=== PATIENT | male | born 1960 | race Caucasian/White ===

== ENCOUNTER 2019-03-21 15:47 | Observation (INO) ==
[2019-03-21] MEDS ORDERED: ACETAMINOPHEN 325 MG TABLET PO PRN (15:53)
[2019-03-21] MEDS ORDERED: ONDANSETRON 4 MG/2 ML VIAL IV PRN (15:53)
[2019-03-21] MEDS ORDERED: DEXTROSE 10% 250 ML BAG IV PRN (15:53)
[2019-03-21] MEDS ORDERED: GLUCAGON 1 MG VIAL IM PRN (15:53)
[2019-03-21] MEDS ORDERED: DOCUSATE SODIUM 100 MG CAPSULE PO PRN (15:53)
[2019-03-21] MEDS ORDERED: DEXTROMETHORPHAN ER 6 MG/ML 90 ML/BOTTLE PO PRN (16:06)
[2019-03-21] MEDS ORDERED: BENZONATATE 100 MG CAPSULE PO PRN (16:07)
[2019-03-21] MEDS: INSULIN LISPRO 100 UNIT/ML SUBCUT SCH ×2 (18:29→20:35)
[2019-03-21] MEDS: methylPREDNISolone SOD SUC 40 MG/1 ML VIAL IV SCH (18:30)
[2019-03-21] MEDS: MEROPENEM 500 MG in SODIUM CHLORIDE 0.9% 100 ML IV SCH (18:32)
[2019-03-21 18:46] LABS: Basophils # 0.1 10*3/uL (0.0-0.2); Basophils % 0.6 % (0.0-0.8); Eosinophils # 0.3 10*3/uL (0.0-0.87); Eosinophils % 3.3 % (0.00-10.9); Hemoglobin 10.6 GM/DL (14.0-18.0); Immature Granulocytes % 2.8 %; Immature Granulocytes Absolute 0.27 #; Lymphocytes # 2.2 10*3/uL (1.4-4.0); Lymphocytes % 22.3 % (21.2-54.2); Mean Corpuscular HGB Conc 32.1 GM/DL (32-36); Mean Corpuscular Volume 100.3 FL (87-102); Mean Platelet Volume 8.6 FL (9.6-12.0); Monocytes % 14.2 % (1.7-12.7); Neutrophils % 56.8 % (38.7-73.9); Platelet Count 280 T/CUMM (130-400); Red Blood Count 3.29 MC/CUMM (3.8-5.5); Red Cell Distribution Width 16.3 % (9.3-17.3); White Blood Count 9.8 T/CUMM (4-12)
[2019-03-21] MEDS: ALBUTEROL/IPRATROPIUM 3 ML NEB RESP TX SCH ×2 (19:00→23:10)
[2019-03-21 19:06] LABS: Albumin 3.2 G/DL (3.4-5.0); Bilirubin,Total 0.6 MG/DL (0.2-1.0); Calcium 8.5 MG/DL (8.5-10.1); Total Protein 7.7 G/DL (6.4-8.3)
[2019-03-21] MEDS: ENOXAPARIN 30 MG/0.3 ML SYRINGE SUBCUT SCH (20:34)
[2019-03-22] MEDS: MEROPENEM 500 MG in SODIUM CHLORIDE 0.9% 100 ML IV SCH ×2 (00:04→05:52)
[2019-03-22] MEDS: ALBUTEROL/IPRATROPIUM 3 ML NEB RESP TX SCH ×6 (03:30→23:10)
[2019-03-22] MEDS: methylPREDNISolone SOD SUC 40 MG/1 ML VIAL IV SCH ×2 (05:52→20:59)
[2019-03-22] MEDS ORDERED: DARBEPOETIN ALFA 100 MCG/ML VIAL SUBCUT SCH (08:00)
[2019-03-22] MEDS ORDERED: GABAPENTIN 100 MG CAPSULE PO SCH (09:00)
[2019-03-22] MEDS: PANTOPRAZOLE 40 MG TABLET PO SCH (09:37)
[2019-03-22] MEDS: INSULIN LISPRO 100 UNIT/ML SUBCUT SCH ×4 (09:37→20:54)
[2019-03-22] MEDS ORDERED: INSULIN GLARGINE 100 UNIT/ML SUBCUT SCH (12:00)
[2019-03-22] MEDS: ASPIRIN EC 81 MG TABLET PO SCH (13:05)
[2019-03-22] MEDS: amLODIPine 10 MG TABLET PO SCH (13:06)
[2019-03-22] MEDS: carvediloL 25 MG TABLET PO SCH ×2 (13:06→18:51)
[2019-03-22] MEDS ORDERED: MEROPENEM 500 MG in SODIUM CHLORIDE 0.9% 100 ML IV SCH (17:00)
[2019-03-22] MEDS: INSULIN GLARGINE 100 UNIT/ML SUBCUT SCH (18:51)
[2019-03-22] MEDS: ENOXAPARIN 30 MG/0.3 ML SYRINGE SUBCUT SCH (20:54)
[2019-03-22] MEDS: GABAPENTIN 100 MG CAPSULE PO SCH (20:54)
[2019-03-23] MEDS: ALBUTEROL/IPRATROPIUM 3 ML NEB RESP TX SCH ×4 (03:10→14:44)
[2019-03-23] MEDS: INSULIN LISPRO 100 UNIT/ML SUBCUT SCH ×4 (08:41→17:40)
[2019-03-23] MEDS: INSULIN GLARGINE 100 UNIT/ML SUBCUT SCH (09:03)
[2019-03-23] MEDS: methylPREDNISolone SOD SUC 40 MG/1 ML VIAL IV SCH ×2 (09:04→12:01)
[2019-03-23] MEDS: ASPIRIN EC 81 MG TABLET PO SCH (09:05)
[2019-03-23] MEDS: GABAPENTIN 100 MG CAPSULE PO SCH (09:05)
[2019-03-23] MEDS: PANTOPRAZOLE 40 MG TABLET PO SCH (09:05)
[2019-03-23] MEDS: amLODIPine 10 MG TABLET PO SCH (09:05)
[2019-03-23] MEDS: carvediloL 25 MG TABLET PO SCH ×2 (09:05→17:41)
[2019-03-23 16:32] VITALS: BP 163/69
[2019-03-23] MEDS ORDERED: predniSONE 10 MG TABLET PO SCH (21:00)
[2019-03-23] MEDS ORDERED: BUDESONIDE/FORMOTEROL 160-4.5 INHALER 6 GM INH SCH (21:00)
== END 2019-03-23 17:45 | disposition home or self-care (01) ==
LOC: N.2E
PROVIDERS: ADMIT Family Medicine; ATTEND Family Medicine

== ENCOUNTER 2020-07-08 23:15 | Inpatient (IN) ==
[2020-07-08] MEDS ORDERED: VANCOMYCIN INJ 1,000 MG in SODIUM CHLORIDE 0.9% 250 ML IV STA (23:25)
[2020-07-09] MEDS ORDERED: MORPHINE 4 MG/1 ML VIAL IV PRN (00:24)
[2020-07-09] MEDS ORDERED: ONDANSETRON 4 MG/2 ML VIAL IV PRN (00:24)
[2020-07-09] MEDS ORDERED: NALOXONE 0.4 MG/ML VIAL IV PRN (00:24)
[2020-07-09] MEDS: ACETAMINOPHEN 325 MG TABLET PO PRN ×3 (01:43→15:59)
[2020-07-09] MEDS ORDERED: cloNIDine 0.1 MG TABLET PO PRN (04:14)
[2020-07-09 06:44] LABS: Basophils # 0.1 10*3/uL (0.0-0.2); Basophils % 0.6 % (0.0-0.8); Eosinophils # 0.1 10*3/uL (0.0-0.87); Eosinophils % 0.7 % (0.00-10.9); Hematocrit 31.5 VOL% (42.0-52.0); Hemoglobin 10.5 GM/DL (14.0-18.0); Immature Granulocytes % 0.9 %; Immature Granulocytes Absolute 0.17 #; Lymphocytes # 1.4 10*3/uL (1.4-4.0); Lymphocytes % 7.2 % (21.2-54.2); Mean Corpuscular HGB Conc 33.3 GM/DL (32-36); Mean Corpuscular Volume 98.1 FL (87-102); Mean Platelet Volume 9.4 FL (9.6-12.0); Monocytes % 13.3 % (1.7-12.7); Neutrophils % 77.3 % (38.7-73.9); Platelet Count 202 T/CUMM (130-400); Red Blood Count 3.21 MC/CUMM (3.8-5.5); Red Cell Distribution Width 15.3 % (9.3-17.3); White Blood Count 19.8 T/CUMM (4-12)
[2020-07-09 07:09] LABS: Albumin 3.1 G/DL (3.4-5.0); Bilirubin,Total 0.6 MG/DL (0.2-1.0); Calcium 8.3 MG/DL (8.5-10.1); Osmolality,Calculated 281.8 MOS/KG (273-304); Potassium 4.4 MMOL/L (3.5-5.1); Total Protein 7.3 G/DL (6.4-8.2)
[2020-07-09] MEDS ORDERED: DEXTROSE 50% 25 GM/50 ML VIAL IV PRN ×2 (08:04→09:45)
[2020-07-09] MEDS ORDERED: GLUCAGON 1 MG VIAL IM PRN (08:04)
[2020-07-09] MEDS ORDERED: VANCOMYCIN INJ 1,250 MG in SODIUM CHLORIDE 0.9% 250 ML IV PRN (08:17)
[2020-07-09] MEDS ORDERED: VANCOMYCIN IV SCH (08:30)
[2020-07-09] MEDS ORDERED: SODIUM CHLORIDE 0.9% IV SCH (08:30)
[2020-07-09] MEDS ORDERED: LEVOFLOXACIN INJ 750 MG/150 ML PREMIX IV ONE (09:00)
[2020-07-09] MEDS: ASCORBIC ACID 500 MG TABLET PO SCH (10:13)
[2020-07-09] MEDS: PANTOPRAZOLE 40 MG TABLET PO SCH (10:13)
[2020-07-09] MEDS: ASPIRIN EC 81 MG TABLET PO SCH (10:13)
[2020-07-09] MEDS: DOCUSATE SODIUM 100 MG CAPSULE PO SCH ×2 (10:13→21:05)
[2020-07-09] MEDS: FENOFIBRATE 160 MG TABLET PO SCH (10:13)
[2020-07-09] MEDS: carvediloL 25 MG TABLET PO SCH ×2 (10:13→17:06)
[2020-07-09] MEDS ORDERED: VANCOMYCIN INJ 2,000 MG in SODIUM CHLORIDE 0.9% 500 ML IV ONE (11:00)
[2020-07-09] MEDS: INSULIN REGULAR ** CONC 500 UNIT/ML ** 20 ML VIAL SUBCUT SCH ×2 (11:59→21:06)
[2020-07-09] MEDS: INSULIN LISPRO 100 UNIT/ML SUBCUT SCH ×3 (12:41→21:06)
[2020-07-09] MEDS: SEVELAMER CARBONATE 800 MG TABLET PO SCH ×2 (12:42→17:06)
[2020-07-09] MEDS: GABAPENTIN 300 MG CAPSULE PO SCH (21:05)
[2020-07-10] MEDS: INSULIN LISPRO 100 UNIT/ML SUBCUT SCH ×4 (10:37→20:59)
[2020-07-10] MEDS: DOCUSATE SODIUM 100 MG CAPSULE PO SCH ×2 (15:04→20:59)
[2020-07-10] MEDS: ASPIRIN EC 81 MG TABLET PO SCH (15:04)
[2020-07-10] MEDS: FENOFIBRATE 160 MG TABLET PO SCH (15:04)
[2020-07-10] MEDS: carvediloL 25 MG TABLET PO SCH ×2 (15:05→17:36)
[2020-07-10] MEDS: SEVELAMER CARBONATE 800 MG TABLET PO SCH ×3 (15:05→17:36)
[2020-07-10] MEDS: PANTOPRAZOLE 40 MG TABLET PO SCH (15:05)
[2020-07-10] MEDS: INSULIN REGULAR ** CONC 500 UNIT/ML ** 20 ML VIAL SUBCUT SCH ×2 (15:05→20:59)
[2020-07-10] MEDS: ENOXAPARIN 30 MG/0.3 ML SYRINGE SUBCUT SCH (15:06)
[2020-07-10] MEDS: ACETAMINOPHEN 325 MG TABLET PO PRN (17:40)
[2020-07-10] MEDS: GABAPENTIN 300 MG CAPSULE PO SCH (20:59)
[2020-07-11 07:28] VITALS: BP 133/59
[2020-07-11] MEDS ORDERED: BUTALBITAL/ACETAMIN/CAFFEINE 50-325-40 MG TABLET PO ONE (07:51)
[2020-07-11] MEDS ORDERED: LEVOFLOXACIN 500 MG TABLET PO ONE (08:50)
[2020-07-11] MEDS ORDERED: LEVOFLOXACIN INJ 500 MG/100 ML PREMIX IV SCH (09:00)
[2020-07-11] MEDS: carvediloL 25 MG TABLET PO SCH (09:11)
[2020-07-11] MEDS: PANTOPRAZOLE 40 MG TABLET PO SCH (09:11)
[2020-07-11] MEDS: DOCUSATE SODIUM 100 MG CAPSULE PO SCH (09:12)
[2020-07-11] MEDS: FENOFIBRATE 160 MG TABLET PO SCH (09:12)
[2020-07-11] MEDS: ASPIRIN EC 81 MG TABLET PO SCH (09:12)
[2020-07-11] MEDS: SEVELAMER CARBONATE 800 MG TABLET PO SCH (09:12)
[2020-07-11] MEDS: ASCORBIC ACID 500 MG TABLET PO SCH (09:12)
[2020-07-11] MEDS: ENOXAPARIN 30 MG/0.3 ML SYRINGE SUBCUT SCH (09:14)
[2020-07-11] MEDS: INSULIN LISPRO 100 UNIT/ML SUBCUT SCH (09:17)
[2020-07-11] MEDS: INSULIN REGULAR ** CONC 500 UNIT/ML ** 20 ML VIAL SUBCUT SCH (09:18)
[2020-07-13] MEDS ORDERED: OZEMPIC SUBCUT SCH (09:00)
== END 2020-07-11 11:46 | disposition home or self-care (01) | DRG 152 ==
LOC: EDUNIT# → EDBD → N.ED 23:15 → N.TELES 07-09 00:24
PROVIDERS: ADMIT Family Medicine; ATTEND Family Medicine

== ENCOUNTER 2020-09-06 10:57 | Inpatient (IN) ==
[2020-09-06] MEDS ORDERED: ONDANSETRON 4 MG/2 ML VIAL IV PRN (11:04)
[2020-09-06] MEDS ORDERED: ACETAMINOPHEN 325 MG TABLET PO PRN (11:04)
[2020-09-06] MEDS ORDERED: DOCUSATE SODIUM 100 MG CAPSULE PO PRN (11:10)
[2020-09-06 13:00] LABS: Basophils # 0.1 10*3/uL (0.0-0.2); Basophils % 0.4 % (0.0-0.8); Eosinophils # 0.4 10*3/uL (0.0-0.87); Eosinophils % 2.4 % (0.00-10.9); Hemoglobin 11.1 GM/DL (14.0-18.0); Immature Granulocytes % 1.2 %; Immature Granulocytes Absolute 0.19 #; Lymphocytes # 1.1 10*3/uL (1.4-4.0); Lymphocytes % 7.1 % (21.2-54.2); Mean Corpuscular HGB Conc 31.7 GM/DL (32-36); Mean Corpuscular Volume 98.6 FL (87-102); Monocytes % 15.7 % (1.7-12.7); Neutrophils % 73.2 % (38.7-73.9); Platelet Count 334 T/CUMM (130-400); Red Blood Count 3.55 MC/CUMM (3.8-5.5); Red Cell Distribution Width 15.3 % (9.3-17.3); White Blood Count 15.7 T/CUMM (4-12)
[2020-09-06 13:19] LABS: Band Neutrophils 46 % (0-10); Eosinophils 1 % (0-10); Lymphocytes 10 % (20-55); Metamyelocytes 1 %; Platelet Estimate Normal; Segmented Neutrophils 23 % (50-85); Total Cells Counted 100
[2020-09-06 13:20] LABS: Anisocytosis 1+; Macrocytosis Slight
[2020-09-06 13:24] LABS: Albumin 3.5 G/DL (3.4-5.0); Bilirubin,Total 0.4 MG/DL (0.20-1.00); Calcium 8.1 MG/DL (8.5-10.1); Osmolality,Calculated 301.8 MOS/KG (273-304); Total Protein 7.9 G/DL (6.4-8.2)
[2020-09-06] MEDS ORDERED: DEXTROSE 50% 25 GM/50 ML VIAL IV ONE (15:40)
[2020-09-06] MEDS ORDERED: DEXTROSE 50% 25 GM/50 ML VIAL IV PRN (16:01)
[2020-09-06] MEDS ORDERED: GLUCAGON 1 MG VIAL IM PRN (16:01)
[2020-09-06] MEDS: INSULIN LISPRO 100 UNIT/ML SUBCUT SCH ×2 (20:59→22:28)
[2020-09-06] MEDS: ENOXAPARIN 30 MG/0.3 ML SYRINGE SUBCUT SCH (21:39)
[2020-09-06] MEDS: SODIUM CHLORIDE 0.9% 1,000 ML IV SCH (22:00)
[2020-09-07] MEDS: VANCOMYCIN 50 MG/ML 60 ML/BOTTLE PO SCH ×4 (00:46→17:05)
[2020-09-07 05:47] LABS: Basophils # 0.1 10*3/uL (0.0-0.2); Basophils % 0.7 % (0.0-0.8); Eosinophils # 0.4 10*3/uL (0.0-0.87); Eosinophils % 2.4 % (0.00-10.9); Hematocrit 34.8 VOL% (42.0-52.0); Hemoglobin 11.5 GM/DL (14.0-18.0); Immature Granulocytes % 2.2 %; Immature Granulocytes Absolute 0.35 #; Lymphocytes # 1.8 10*3/uL (1.4-4.0); Lymphocytes % 11.1 % (21.2-54.2); Mean Corpuscular Volume 96.4 FL (87-102); Mean Platelet Volume 9.6 FL (9.6-12.0); Monocytes % 20.2 % (1.7-12.7); Neutrophils % 63.4 % (38.7-73.9); Platelet Count 352 T/CUMM (130-400); Red Blood Count 3.61 MC/CUMM (3.8-5.5); Red Cell Distribution Width 15.2 % (9.3-17.3); White Blood Count 16.2 T/CUMM (4-12)
[2020-09-07 06:17] LABS: Calcium 8.2 MG/DL (8.5-10.1); Osmolality,Calculated 304.5 MOS/KG (273-304); Potassium 3.8 MMOL/L (3.5-5.1)
[2020-09-07 06:48] LABS: Band Neutrophils 15 % (0-10); Eosinophils 2 % (0-10); Lymphocytes 11 % (20-55); Macrocytosis Slight; Platelet Estimate Normal; Segmented Neutrophils 52 % (50-85); Total Cells Counted 100
[2020-09-07] MEDS: PANTOPRAZOLE 40 MG TABLET PO SCH (06:49)
[2020-09-07] MEDS: INSULIN LISPRO 100 UNIT/ML SUBCUT SCH ×4 (10:08→21:26)
[2020-09-07] MEDS: ASPIRIN EC 81 MG TABLET PO SCH (10:09)
[2020-09-07] MEDS: GABAPENTIN 300 MG CAPSULE PO SCH ×2 (10:09→21:27)
[2020-09-07] MEDS: SEVELAMER CARBONATE 800 MG TABLET PO SCH ×3 (10:09→17:04)
[2020-09-07] MEDS: carvediloL 25 MG TABLET PO SCH ×2 (10:10→21:26)
[2020-09-07] MEDS: LOPERAMIDE 2 MG CAPSULE PO PRN ×2 (12:18→21:29)
[2020-09-07] MEDS: TEMAZEPAM 15 MG CAPSULE PO SCH (21:26)
[2020-09-07] MEDS: ENOXAPARIN 30 MG/0.3 ML SYRINGE SUBCUT SCH (21:26)
[2020-09-07] MEDS: SODIUM CHLORIDE 0.9% 1,000 ML IV SCH (21:27)
[2020-09-08] MEDS: VANCOMYCIN 50 MG/ML 60 ML/BOTTLE PO SCH ×4 (01:01→17:32)
[2020-09-08] MEDS: PANTOPRAZOLE 40 MG TABLET PO SCH (06:09)
[2020-09-08] MEDS: GABAPENTIN 300 MG CAPSULE PO SCH ×2 (08:29→20:51)
[2020-09-08] MEDS: SEVELAMER CARBONATE 800 MG TABLET PO SCH ×3 (08:30→17:31)
[2020-09-08] MEDS: carvediloL 25 MG TABLET PO SCH ×2 (08:30→20:51)
[2020-09-08] MEDS: INSULIN LISPRO 100 UNIT/ML SUBCUT SCH ×4 (08:30→20:53)
[2020-09-08] MEDS: ASPIRIN EC 81 MG TABLET PO SCH (08:30)
[2020-09-08] MEDS: SODIUM CHLORIDE 0.9% 1,000 ML IV SCH (18:14)
[2020-09-08] MEDS: LOPERAMIDE 2 MG CAPSULE PO PRN (18:42)
[2020-09-08] MEDS: TEMAZEPAM 15 MG CAPSULE PO SCH (20:51)
[2020-09-08] MEDS: ENOXAPARIN 30 MG/0.3 ML SYRINGE SUBCUT SCH (20:52)
[2020-09-08] MEDS: traMADol 50 MG TABLET PO PRN (20:52)
[2020-09-09] MEDS: VANCOMYCIN 50 MG/ML 60 ML/BOTTLE PO SCH ×5 (00:21→23:03)
[2020-09-09] MEDS: SODIUM CHLORIDE 0.9% 1,000 ML IV SCH ×2 (03:58→23:03)
[2020-09-09 06:06] LABS: Basophils # 0.1 10*3/uL (0.0-0.2); Basophils % 0.7 % (0.0-0.8); Eosinophils # 0.7 10*3/uL (0.0-0.87); Eosinophils % 4.5 % (0.00-10.9); Hematocrit 33.5 VOL% (42.0-52.0); Hemoglobin 10.5 GM/DL (14.0-18.0); Immature Granulocytes % 7.1 %; Immature Granulocytes Absolute 1.02 #; Lymphocytes # 1.9 10*3/uL (1.4-4.0); Lymphocytes % 13.4 % (21.2-54.2); Mean Corpuscular HGB Conc 31.3 GM/DL (32-36); Mean Corpuscular Volume 98.5 FL (87-102); Mean Platelet Volume 9.8 FL (9.6-12.0); Monocytes % 15.1 % (1.7-12.7); Neutrophils % 59.2 % (38.7-73.9); Platelet Count 295 T/CUMM (130-400); Red Cell Distribution Width 15.7 % (9.3-17.3); White Blood Count 14.4 T/CUMM (4-12)
[2020-09-09 06:49] LABS: Calcium 8.1 MG/DL (8.5-10.1); Osmolality,Calculated 300.8 MOS/KG (273-304); Potassium 3.5 MMOL/L (3.5-5.1)
[2020-09-09] MEDS: PANTOPRAZOLE 40 MG TABLET PO SCH (06:53)
[2020-09-09 07:09] LABS: Anisocytosis 1+; Atypical Lymphocytes Few; Band Neutrophils 28 % (0-10); Eosinophils 7 % (0-10); Lymphocytes 18 % (20-55); Macrocytosis Slight; Metamyelocytes 2 %; Myelocytes 1 %; Platelet Estimate Normal; Segmented Neutrophils 28 % (50-85); Total Cells Counted 100
[2020-09-09] MEDS: traMADol 50 MG TABLET PO PRN (08:18)
[2020-09-09] MEDS: INSULIN LISPRO 100 UNIT/ML SUBCUT SCH ×4 (08:29→22:06)
[2020-09-09] MEDS: SEVELAMER CARBONATE 800 MG TABLET PO SCH ×3 (08:30→17:06)
[2020-09-09] MEDS: ASPIRIN EC 81 MG TABLET PO SCH (09:56)
[2020-09-09] MEDS: GABAPENTIN 300 MG CAPSULE PO SCH ×2 (09:57→22:05)
[2020-09-09] MEDS: carvediloL 25 MG TABLET PO SCH ×2 (09:57→22:06)
[2020-09-09] MEDS: methylPREDNISolone SOD SUC 40 MG/1 ML VIAL IV SCH ×2 (17:11→22:07)
[2020-09-09] MEDS: TEMAZEPAM 15 MG CAPSULE PO SCH (22:05)
[2020-09-09] MEDS: ENOXAPARIN 30 MG/0.3 ML SYRINGE SUBCUT SCH (22:06)
[2020-09-10 05:45] LABS: Basophils # 0.1 10*3/uL (0.0-0.2); Basophils % 0.7 % (0.0-0.8); Eosinophils % 0.3 % (0.00-10.9); Hematocrit 32.1 VOL% (42.0-52.0); Hemoglobin 10.7 GM/DL (14.0-18.0); Immature Granulocytes % 8.7 %; Immature Granulocytes Absolute 1.04 #; Lymphocytes % 7.9 % (21.2-54.2); Mean Corpuscular HGB Conc 33.3 GM/DL (32-36); Mean Corpuscular Volume 95.8 FL (87-102); Mean Platelet Volume 9.9 FL (9.6-12.0); Monocytes % 1.4 % (1.7-12.7); Platelet Count 244 T/CUMM (130-400); Red Blood Count 3.35 MC/CUMM (3.8-5.5)
[2020-09-10] MEDS: PANTOPRAZOLE 40 MG TABLET PO SCH (06:00)
[2020-09-10] MEDS: VANCOMYCIN 50 MG/ML 60 ML/BOTTLE PO SCH ×2 (06:00→11:33)
[2020-09-10 06:04] LABS: Calcium 7.9 MG/DL (8.5-10.1); Osmolality,Calculated 310.2 MOS/KG (273-304); Potassium 3.8 MMOL/L (3.5-5.1)
[2020-09-10] MEDS: INSULIN LISPRO 100 UNIT/ML SUBCUT SCH ×2 (08:11→11:32)
[2020-09-10] MEDS: carvediloL 25 MG TABLET PO SCH (08:12)
[2020-09-10] MEDS: GABAPENTIN 300 MG CAPSULE PO SCH (08:12)
[2020-09-10] MEDS: SEVELAMER CARBONATE 800 MG TABLET PO SCH ×2 (08:12→11:33)
[2020-09-10] MEDS: ASPIRIN EC 81 MG TABLET PO SCH (08:12)
[2020-09-10 08:16] LABS: Band Neutrophils 8 % (0-10); Lymphocytes 4 % (20-55); Segmented Neutrophils 82 % (50-85); Total Cells Counted 100
[2020-09-10 08:17] LABS: Platelet Estimate Normal
[2020-09-10 11:33] VITALS: BP 125/41
== END 2020-09-10 13:00 | disposition home or self-care (01) | DRG 371 ==
LOC: N.5E
PROVIDERS: ADMIT Family Medicine; ATTEND Family Medicine

== ENCOUNTER 2021-08-13 14:19 | Inpatient (IN) ==
[2021-08-13] MEDS ORDERED: SODIUM CHLORIDE 0.9% 500 ML IV STA (14:44)
[2021-08-13] MEDS ORDERED: DEXTROSE 50% 25 GM/50 ML VIAL IV STA ×2 (14:52→15:47)
[2021-08-13 15:10] LABS: Basophils # 0.1 10*3/uL (0.0-0.2); Basophils % 0.3 % (0.0-0.8); Eosinophils # 0.4 10*3/uL (0.0-0.87); Eosinophils % 1.5 % (0.00-10.9); Hematocrit 28.9 VOL% (42.0-52.0); Hemoglobin 9.2 GM/DL (14.0-18.0); Immature Granulocytes % 1.1 %; Lymphocytes # 1.7 10*3/uL (1.4-4.0); Lymphocytes % 6.5 % (21.2-54.2); Mean Corpuscular HGB Conc 31.8 GM/DL (32-36); Mean Corpuscular Volume 100.7 FL (87-102); Mean Platelet Volume 9.5 FL (9.6-12.0); Monocytes # 2.4 10*3/uL (0.11-0.8); Monocytes % 9.1 % (1.7-12.7); Neutrophils % 81.5 % (38.7-73.9); Platelet Count 332 T/CUMM (130-400); Red Blood Count 2.87 MC/CUMM (3.8-5.5); Red Cell Distribution Width 15.3 % (9.3-17.3); White Blood Count 26.2 T/CUMM (4-12)
[2021-08-13] MEDS ORDERED: DEXTROSE 50% 25 GM/50 ML SYRINGE IV ONE ×2 (15:10→15:48)
[2021-08-13 15:31] LABS: Albumin 3.5 G/DL (3.4-5.0); Bilirubin,Total 0.4 MG/DL (0.20-1.00); Calcium 8.7 MG/DL (8.5-10.1); Osmolality,Calculated 296.3 MOS/KG (273-304); Potassium 4.1 MMOL/L (3.5-5.1); Total Protein 7.4 G/DL (6.4-8.2)
[2021-08-13] MEDS ORDERED: DEXTROSE 50% 25 GM/50 ML SYRINGE IV STA (15:50)
[2021-08-13 15:54] LABS: Band Neutrophils 3 % (0-10); Eosinophils 1 % (0-10); Lymphocytes 8 % (20-55); Macrocytosis Slight; Platelet Estimate Normal; Total Cells Counted 100
[2021-08-13] MEDS ORDERED: LEVOFLOXACIN INJ 500 MG/100 ML PREMIX IV STA (16:13)
[2021-08-13] MEDS ORDERED: GLUCAGON 1 MG VIAL IM PRN (17:02)
[2021-08-13] MEDS ORDERED: DEXTROSE 10% 250 ML BAG IV PRN (17:07)
[2021-08-13] MEDS: DEXTROSE 5% NACL 0.45% 1,000 ML IV SCH (17:23)
[2021-08-13] MEDS ORDERED: INSULIN LISPRO 100 UNIT/ML SUBCUT SCH (17:30)
[2021-08-13] MEDS: INSULIN LISPRO 100 UNIT/ML SUBCUT SCH (20:19)
[2021-08-13] MEDS ORDERED: carvediloL 25 MG TABLET PO SCH (21:00)
[2021-08-13] MEDS: DOCUSATE SODIUM 100 MG CAPSULE PO SCH (21:12)
[2021-08-13] MEDS: GABAPENTIN 300 MG CAPSULE PO SCH (21:12)
[2021-08-14] MEDS: INSULIN LISPRO 100 UNIT/ML SUBCUT SCH ×6 (00:07→21:57)
[2021-08-14] MEDS: ACETAMINOPHEN 325 MG TABLET PO PRN ×2 (03:12→22:35)
[2021-08-14] MEDS: ONDANSETRON 4 MG/2 ML VIAL IV PRN ×2 (05:55→17:10)
[2021-08-14 06:11] LABS: Basophils % 0.2 % (0.0-0.8); Eosinophils # 0.6 10*3/uL (0.0-0.87); Eosinophils % 4.7 % (0.00-10.9); Hematocrit 26.3 VOL% (42.0-52.0); Hemoglobin 8.2 GM/DL (14.0-18.0); Immature Granulocytes % 0.5 %; Immature Granulocytes Absolute 0.06 #; Lymphocytes # 1.3 10*3/uL (1.4-4.0); Lymphocytes % 10.9 % (21.2-54.2); Mean Corpuscular HGB Conc 31.2 GM/DL (32-36); Mean Corpuscular Volume 103.5 FL (87-102); Mean Platelet Volume 9.5 FL (9.6-12.0); Monocytes # 1.9 10*3/uL (0.11-0.8); Monocytes % 16.1 % (1.7-12.7); Neutrophils % 67.6 % (38.7-73.9); Platelet Count 257 T/CUMM (130-400); Red Blood Count 2.54 MC/CUMM (3.8-5.5); Red Cell Distribution Width 15.8 % (9.3-17.3); White Blood Count 11.7 T/CUMM (4-12)
[2021-08-14 06:32] LABS: Band Neutrophils 25 % (0-10); Eosinophils 6 % (0-10); Lymphocytes 14 % (20-55); Platelet Estimate Normal; Total Cells Counted 100
[2021-08-14 06:33] LABS: Anisocytosis 1+; Macrocytosis 1+
[2021-08-14 06:35] LABS: Bilirubin,Total 0.4 MG/DL (0.20-1.00); Calcium 7.7 MG/DL (8.5-10.1); Osmolality,Calculated 302.7 MOS/KG (273-304); Potassium 5.8 MMOL/L (3.5-5.1); Total Protein 6.6 G/DL (6.4-8.2)
[2021-08-14] MEDS ORDERED: SODIUM POLYSTYRENE SULFATE 15 GM/60 ML BOTTLE PO STA (07:03)
[2021-08-14] MEDS: SEVELAMER CARBONATE 800 MG TABLET PO SCH ×3 (09:04→18:01)
[2021-08-14] MEDS: DOCUSATE SODIUM 100 MG CAPSULE PO SCH ×2 (09:04→21:58)
[2021-08-14] MEDS: ASPIRIN EC 81 MG TABLET PO SCH (09:04)
[2021-08-14] MEDS: carvediloL 25 MG TABLET PO SCH ×2 (09:04→18:01)
[2021-08-14] MEDS: PANTOPRAZOLE 40 MG TABLET PO SCH (09:04)
[2021-08-14] MEDS: GABAPENTIN 300 MG CAPSULE PO SCH ×2 (09:04→21:58)
[2021-08-14] MEDS: allopurinoL 100 MG TABLET PO SCH (09:05)
[2021-08-14] MEDS: DEXTROSE 5% NACL 0.45% 1,000 ML IV SCH (17:48)
[2021-08-15] MEDS: INSULIN LISPRO 100 UNIT/ML SUBCUT SCH ×6 (01:44→21:08)
[2021-08-15 06:58] LABS: Basophils % 0.3 % (0.0-0.8); Eosinophils # 0.7 10*3/uL (0.0-0.87); Eosinophils % 6.7 % (0.00-10.9); Hematocrit 26.4 VOL% (42.0-52.0); Hemoglobin 8.2 GM/DL (14.0-18.0); Immature Granulocytes Absolute 0.11 #; Lymphocytes # 1.4 10*3/uL (1.4-4.0); Lymphocytes % 13.5 % (21.2-54.2); Mean Corpuscular HGB Conc 31.1 GM/DL (32-36); Mean Corpuscular Volume 102.7 FL (87-102); Monocytes # 1.8 10*3/uL (0.11-0.8); Monocytes % 17.2 % (1.7-12.7); Neutrophils % 61.3 % (38.7-73.9); Platelet Count 245 T/CUMM (130-400); Red Blood Count 2.57 MC/CUMM (3.8-5.5); Red Cell Distribution Width 16.1 % (9.3-17.3); White Blood Count 10.5 T/CUMM (4-12)
[2021-08-15 07:11] LABS: Calcium 7.6 MG/DL (8.5-10.1); Osmolality,Calculated 291.1 MOS/KG (273-304); Potassium 5.1 MMOL/L (3.5-5.1)
[2021-08-15 07:19] LABS: Anisocytosis 1+; Band Neutrophils 31 % (0-10); Basophilic Stippling Slight; Eosinophils 9 % (0-10); Lymphocytes 15 % (20-55); Macrocytosis 1+; Metamyelocytes 1 %; Platelet Estimate Normal; Total Cells Counted 100
[2021-08-15] MEDS: GABAPENTIN 300 MG CAPSULE PO SCH ×2 (09:22→21:07)
[2021-08-15] MEDS: allopurinoL 100 MG TABLET PO SCH (09:22)
[2021-08-15] MEDS: carvediloL 25 MG TABLET PO SCH ×2 (09:22→17:10)
[2021-08-15] MEDS: ASPIRIN EC 81 MG TABLET PO SCH (09:22)
[2021-08-15] MEDS: SEVELAMER CARBONATE 800 MG TABLET PO SCH ×3 (09:22→17:10)
[2021-08-15] MEDS: VANCOMYCIN 125 MG CAPSULE PO SCH ×3 (09:22→18:33)
[2021-08-15] MEDS: PANTOPRAZOLE 40 MG TABLET PO SCH (09:23)
[2021-08-15] MEDS: DOCUSATE SODIUM 100 MG CAPSULE PO SCH ×2 (09:25→21:07)
[2021-08-15] MEDS ORDERED: SODIUM CHLORIDE 0.9% 250 ML IV ONE (16:55)
[2021-08-15] MEDS ORDERED: LEVOFLOXACIN INJ 500 MG/100 ML PREMIX IV ONE (16:55)
[2021-08-15] MEDS: ACETAMINOPHEN 325 MG TABLET PO PRN (17:10)
[2021-08-16] MEDS: INSULIN LISPRO 100 UNIT/ML SUBCUT SCH ×5 (01:17→17:34)
[2021-08-16] MEDS: DEXTROSE 5% NACL 0.45% 1,000 ML IV SCH ×2 (01:18→18:50)
[2021-08-16] MEDS: VANCOMYCIN 125 MG CAPSULE PO SCH ×4 (01:40→18:19)
[2021-08-16] MEDS: ACETAMINOPHEN 325 MG TABLET PO PRN ×2 (01:40→17:35)
[2021-08-16] MEDS: ASPIRIN EC 81 MG TABLET PO SCH (08:37)
[2021-08-16] MEDS: PANTOPRAZOLE 40 MG TABLET PO SCH (08:37)
[2021-08-16] MEDS: allopurinoL 100 MG TABLET PO SCH (08:37)
[2021-08-16] MEDS: SEVELAMER CARBONATE 800 MG TABLET PO SCH ×3 (08:38→18:12)
[2021-08-16] MEDS: carvediloL 25 MG TABLET PO SCH ×2 (08:38→18:10)
[2021-08-16] MEDS: GABAPENTIN 300 MG CAPSULE PO SCH ×2 (08:38→20:25)
[2021-08-16] MEDS: DOCUSATE SODIUM 100 MG CAPSULE PO SCH ×2 (08:41→20:25)
[2021-08-16] MEDS ORDERED: SODIUM CHLORIDE 0.9% 250 ML IV ONE (17:06)
[2021-08-16 17:46] LABS: Arterial Base Excess iSTAT 1 MMOL/L (-2.5-2.5); Arterial Bicarbonate iSTAT 28.9 MMOL/L (20-26); Arterial O2 Saturation iSTAT 88 % (95-100); Arterial PCO2 iSTAT 64 MM HG (35-48); Arterial PO2 iSTAT 63 MM HG (80-95); Arterial Total CO2 iSTAT 31 MMO/L (23-27); Arterial pH iSTAT 7.266 (7.35-7.45)
[2021-08-16] MEDS ORDERED: IBUPROFEN 600 MG TABLET PO PRN (18:08)
[2021-08-16] MEDS ORDERED: LORazepam 0.5 MG TABLET PO PRN (19:53)
[2021-08-17] MEDS: INSULIN LISPRO 100 UNIT/ML SUBCUT SCH ×7 (01:08→23:49)
[2021-08-17] MEDS: VANCOMYCIN 125 MG CAPSULE PO SCH ×4 (05:15→18:00)
[2021-08-17 06:27] LABS: Basophils % 0.2 % (0.0-0.8); Eosinophils # 0.8 10*3/uL (0.0-0.87); Eosinophils % 5.6 % (0.00-10.9); Hematocrit 24.3 VOL% (42.0-52.0); Hemoglobin 7.4 GM/DL (14.0-18.0); Immature Granulocytes % 1.3 %; Immature Granulocytes Absolute 0.17 #; Lymphocytes # 1.6 10*3/uL (1.4-4.0); Lymphocytes % 11.8 % (21.2-54.2); Mean Corpuscular HGB Conc 30.5 GM/DL (32-36); Mean Corpuscular Volume 104.3 FL (87-102); Mean Platelet Volume 9.6 FL (9.6-12.0); Monocytes # 1.9 10*3/uL (0.11-0.8); Monocytes % 13.7 % (1.7-12.7); Neutrophils % 67.4 % (38.7-73.9); Platelet Count 219 T/CUMM (130-400); Red Blood Count 2.33 MC/CUMM (3.8-5.5); Red Cell Distribution Width 15.7 % (9.3-17.3); White Blood Count 13.5 T/CUMM (4-12)
[2021-08-17 06:48] LABS: Alanine Aminotransferase 14 U/L (16-61); Alkaline Phosphatase 45 U/L (45-117); Aspartate Amino Transferase 7 U/L (0-37); Bilirubin,Total < 0.39 MG/DL (0.20-1.00); Blood Urea Nitrogen 58 MG/DL (7-18); Carbon Dioxide 29 MMOL/L (21-32); Chloride 103 MMOL/L (98-107); Glucose 155 MG/DL (74-106); Potassium 5.5 MMOL/L (3.5-5.1); Sodium 136 MMOL/L (136-145); Total Protein 6.6 G/DL (6.4-8.2)
[2021-08-17 08:24] VITALS: BP 148/61
[2021-08-17 10:05] LABS: Arterial Base Excess iSTAT 0 MMOL/L (-2.5-2.5); Arterial Bicarbonate iSTAT 28.9 MMOL/L (20-26); Arterial O2 Saturation iSTAT 97 % (95-100); Arterial PCO2 iSTAT 74 MM HG (35-48); Arterial PO2 iSTAT 117 MM HG (80-95); Arterial Total CO2 iSTAT 31 MMO/L (23-27); Arterial pH iSTAT 7.202 (7.35-7.45)
[2021-08-17] MEDS: allopurinoL 100 MG TABLET PO SCH (10:32)
[2021-08-17] MEDS: SEVELAMER CARBONATE 800 MG TABLET PO SCH ×3 (10:33→18:16)
[2021-08-17] MEDS: GABAPENTIN 300 MG CAPSULE PO SCH ×2 (10:33→20:15)
[2021-08-17] MEDS: PANTOPRAZOLE 40 MG TABLET PO SCH (10:33)
[2021-08-17] MEDS: ASPIRIN EC 81 MG TABLET PO SCH (10:33)
[2021-08-17] MEDS: DOCUSATE SODIUM 100 MG CAPSULE PO SCH ×2 (11:04→20:15)
[2021-08-17 14:46] LABS: Arterial Base Excess iSTAT 2 MMOL/L (-2.5-2.5); Arterial Bicarbonate iSTAT 28.8 MMOL/L (20-26); Arterial O2 Saturation iSTAT 91 % (95-100); Arterial PCO2 iSTAT 62 MM HG (35-48); Arterial PO2 iSTAT 70 MM HG (80-95); Arterial Total CO2 iSTAT 31 MMO/L (23-27); Arterial pH iSTAT 7.277 (7.35-7.45)
[2021-08-17] MEDS ORDERED: VANCOMYCIN INJ 1,000 MG in SODIUM CHLORIDE 0.9% 250 ML IV ONE (15:30)
[2021-08-17] MEDS ORDERED: LEVOFLOXACIN INJ 750 MG/150 ML PREMIX IV ONE (17:00)
[2021-08-17] MEDS: ACETAMINOPHEN 325 MG TABLET PO PRN (20:15)
[2021-08-18] MEDS: VANCOMYCIN 125 MG CAPSULE PO SCH ×5 (00:15→23:42)
[2021-08-18] MEDS: ACETAMINOPHEN 325 MG TABLET PO PRN ×2 (03:22→16:46)
[2021-08-18] MEDS: INSULIN LISPRO 100 UNIT/ML SUBCUT SCH ×6 (03:54→23:41)
[2021-08-18] MEDS: SEVELAMER CARBONATE 800 MG TABLET PO SCH ×3 (08:36→16:46)
[2021-08-18] MEDS: SODIUM ZIRCONIUM CYCLOSILICATE 10 GM PACK PO SCH ×3 (08:40→20:55)
[2021-08-18] MEDS: PANTOPRAZOLE 40 MG TABLET PO SCH (08:41)
[2021-08-18] MEDS: ASPIRIN EC 81 MG TABLET PO SCH (08:41)
[2021-08-18] MEDS: GABAPENTIN 300 MG CAPSULE PO SCH ×2 (08:41→20:47)
[2021-08-18] MEDS: allopurinoL 100 MG TABLET PO SCH (08:41)
[2021-08-18] MEDS: DOCUSATE SODIUM 100 MG CAPSULE PO SCH ×3 (08:41→20:47)
[2021-08-18 09:34] LABS: Arterial Base Excess iSTAT 0 MMOL/L (-2.5-2.5); Arterial Bicarbonate iSTAT 26.3 MMOL/L (20-26); Arterial O2 Saturation iSTAT 89 % (95-100); Arterial PCO2 iSTAT 53 MM HG (35-48); Arterial PO2 iSTAT 63 MM HG (80-95); Arterial Total CO2 iSTAT 28 MMO/L (23-27); Arterial pH iSTAT 7.305 (7.35-7.45)
[2021-08-18 10:06] LABS: Basophils % 0.2 % (0.0-0.8); Eosinophils # 0.6 10*3/uL (0.0-0.87); Eosinophils % 5.2 % (0.00-10.9); Hematocrit 21.9 VOL% (42.0-52.0); Hemoglobin 7.2 GM/DL (14.0-18.0); Immature Granulocytes % 1.5 %; Immature Granulocytes Absolute 0.16 #; Lymphocytes # 0.9 10*3/uL (1.4-4.0); Lymphocytes % 8.8 % (21.2-54.2); Mean Corpuscular HGB Conc 32.9 GM/DL (32-36); Mean Corpuscular Volume 100.5 FL (87-102); Mean Platelet Volume 10.1 FL (9.6-12.0); Monocytes # 1.1 10*3/uL (0.11-0.8); Monocytes % 10.1 % (1.7-12.7); Neutrophils % 74.2 % (38.7-73.9); Platelet Count 213 T/CUMM (130-400); Red Blood Count 2.18 MC/CUMM (3.8-5.5); Red Cell Distribution Width 15.5 % (9.3-17.3); White Blood Count 10.5 T/CUMM (4-12)
[2021-08-18 10:27] LABS: Albumin 2.7 G/DL (3.4-5.0); Bilirubin,Total 0.4 MG/DL (0.20-1.00); Calcium 8.1 MG/DL (8.5-10.1); Osmolality,Calculated 289.1 MOS/KG (273-304); Potassium 4.9 MMOL/L (3.5-5.1); Total Protein 6.4 G/DL (6.4-8.2)
[2021-08-19 04:11] LABS: Arterial Base Excess iSTAT 1 MMOL/L (-2.5-2.5); Arterial Bicarbonate iSTAT 27.4 MMOL/L (20-26); Arterial O2 Saturation iSTAT 90 % (95-100); Arterial PCO2 iSTAT 55 MM HG (35-48); Arterial PO2 iSTAT 66 MM HG (80-95); Arterial Total CO2 iSTAT 29 MMO/L (23-27); Arterial pH iSTAT 7.305 (7.35-7.45)
[2021-08-19] MEDS: INSULIN LISPRO 100 UNIT/ML SUBCUT SCH ×5 (05:31→20:04)
[2021-08-19] MEDS: VANCOMYCIN 125 MG CAPSULE PO SCH ×3 (05:32→17:38)
[2021-08-19 06:56] LABS: Basophils % 0.3 % (0.0-0.8); Eosinophils # 0.6 10*3/uL (0.0-0.87); Eosinophils % 5.2 % (0.00-10.9); Hematocrit 24.4 VOL% (42.0-52.0); Hemoglobin 7.9 GM/DL (14.0-18.0); Immature Granulocytes Absolute 0.23 #; Lymphocytes # 1.1 10*3/uL (1.4-4.0); Lymphocytes % 9.2 % (21.2-54.2); Mean Corpuscular HGB Conc 32.4 GM/DL (32-36); Mean Corpuscular Volume 98.8 FL (87-102); Mean Platelet Volume 9.3 FL (9.6-12.0); Monocytes # 1.4 10*3/uL (0.11-0.8); Neutrophils % 71.3 % (38.7-73.9); Platelet Count 223 T/CUMM (130-400); Red Blood Count 2.47 MC/CUMM (3.8-5.5); Red Cell Distribution Width 15.7 % (9.3-17.3); White Blood Count 11.5 T/CUMM (4-12)
[2021-08-19] MEDS: ACETAMINOPHEN 325 MG TABLET PO PRN ×2 (06:57→18:15)
[2021-08-19 07:25] LABS: Calcium 7.9 MG/DL (8.5-10.1); Potassium 4.5 MMOL/L (3.5-5.1)
[2021-08-19] MEDS: ASPIRIN EC 81 MG TABLET PO SCH (08:15)
[2021-08-19] MEDS: allopurinoL 100 MG TABLET PO SCH (08:15)
[2021-08-19] MEDS: SEVELAMER CARBONATE 800 MG TABLET PO SCH ×3 (08:15→16:29)
[2021-08-19] MEDS: DOCUSATE SODIUM 100 MG CAPSULE PO SCH ×2 (08:15→20:05)
[2021-08-19] MEDS: PANTOPRAZOLE 40 MG TABLET PO SCH (08:15)
[2021-08-19] MEDS: GABAPENTIN 300 MG CAPSULE PO SCH ×2 (08:15→20:04)
[2021-08-19] MEDS: BACILLUS COAGULANS CAPLET PO SCH (10:07)
[2021-08-19] MEDS ORDERED: DEXTROSE 10% 250 ML BAG IV PRN (10:35)
[2021-08-19] MEDS: BUDESONIDE/FORMOTEROL 160-4.5 INHALER 6 GM INH SCH ×2 (11:23→20:05)
[2021-08-19] MEDS: HEPARIN 5,000 UNIT/1 ML VIAL SUBCUT SCH ×2 (11:23→23:11)
[2021-08-19] MEDS: predniSONE 10 MG TABLET PO SCH (11:23)
[2021-08-19] MEDS: ALBUTEROL/IPRATROPIUM 3 ML NEB RESP TX SCH ×2 (13:27→19:30)
[2021-08-19] MEDS ORDERED: LEVOFLOXACIN INJ 500 MG/100 ML PREMIX IV SCH (17:00)
[2021-08-20] MEDS: ALBUTEROL/IPRATROPIUM 3 ML NEB RESP TX SCH ×3 (00:09→12:20)
[2021-08-20] MEDS: VANCOMYCIN 125 MG CAPSULE PO SCH ×3 (00:19→14:10)
[2021-08-20 06:08] LABS: Basophils # 0.1 10*3/uL (0.0-0.2); Basophils % 0.5 % (0.0-0.8); Eosinophils # 0.5 10*3/uL (0.0-0.87); Hemoglobin 7.6 GM/DL (14.0-18.0); Immature Granulocytes % 4.1 %; Lymphocytes % 9.9 % (21.2-54.2); Mean Corpuscular Volume 97.5 FL (87-102); Mean Platelet Volume 9.3 FL (9.6-12.0); Monocytes % 9.7 % (1.7-12.7); Neutrophils % 70.8 % (38.7-73.9); Platelet Count 250 T/CUMM (130-400); Red Blood Count 2.36 MC/CUMM (3.8-5.5); Red Cell Distribution Width 15.4 % (9.3-17.3); White Blood Count 9.8 T/CUMM (4-12)
[2021-08-20 06:27] LABS: Alanine Aminotransferase 16 U/L (16-61); Albumin 2.6 G/DL (3.4-5.0); Alkaline Phosphatase 49 U/L (45-117); Aspartate Amino Transferase 10 U/L (0-37); Bilirubin,Total < 0.39 MG/DL (0.20-1.00); Blood Urea Nitrogen 76 MG/DL (7-18); Calcium 7.8 MG/DL (8.5-10.1); Carbon Dioxide 23 MMOL/L (21-32); Chloride 100 MMOL/L (98-107); Glucose 147 MG/DL (74-106); Osmolality,Calculated 298.8 MOS/KG (273-304); Potassium 4.6 MMOL/L (3.5-5.1); Sodium 137 MMOL/L (136-145); Total Protein 6.7 G/DL (6.4-8.2)
[2021-08-20] MEDS: SEVELAMER CARBONATE 800 MG TABLET PO SCH ×2 (08:05→12:34)
[2021-08-20] MEDS: BACILLUS COAGULANS CAPLET PO SCH (08:05)
[2021-08-20] MEDS: ASPIRIN EC 81 MG TABLET PO SCH (08:06)
[2021-08-20] MEDS: DOCUSATE SODIUM 100 MG CAPSULE PO SCH (08:06)
[2021-08-20] MEDS: GABAPENTIN 300 MG CAPSULE PO SCH (08:06)
[2021-08-20] MEDS: PANTOPRAZOLE 40 MG TABLET PO SCH (08:06)
[2021-08-20] MEDS: INSULIN LISPRO 100 UNIT/ML SUBCUT SCH ×2 (08:06→12:30)
[2021-08-20] MEDS: BUDESONIDE/FORMOTEROL 160-4.5 INHALER 6 GM INH SCH (08:07)
[2021-08-20] MEDS: predniSONE 10 MG TABLET PO SCH (08:07)
[2021-08-20] MEDS: allopurinoL 100 MG TABLET PO SCH (08:07)
[2021-08-20] MEDS ORDERED: FENOFIBRATE 160 MG TABLET PO SCH (09:00)
[2021-08-20] MEDS ORDERED: diphenhydrAMINE 50 MG/1 ML VIAL IV PRN (11:40)
[2021-08-20] MEDS: HEPARIN 5,000 UNIT/1 ML VIAL SUBCUT SCH (11:59)
[2021-08-20 15:10] LABS: Hematocrit 23.3 VOL% (42.0-52.0); Hemoglobin 7.7 GM/DL (14.0-18.0)
[2021-08-24] MEDS ORDERED: predniSONE 10 MG TABLET PO PRN (09:00)
== END 2021-08-20 17:20 | disposition home or self-care (01) | DRG 371 ==
LOC: EDBD → EDUNIT# → N.EDINP 14:19 → N.ED 14:19 → N.EDINP 18:16 → N.3E 18:27 → SUATTDRO 08-15 15:55 → N.CC 08-17 10:52
PROVIDERS: ADMIT Family Medicine; ATTEND Family Medicine

== ENCOUNTER 2022-03-18 12:06 | Inpatient (IN) ==
[2022-03-18] MEDS ORDERED: DEXTROSE 10% 250 ML BAG IV PRN ×2 (13:40→16:52)
[2022-03-18] MEDS ORDERED: ONDANSETRON 4 MG/2 ML VIAL IV PRN (13:40)
[2022-03-18] MEDS ORDERED: DOCUSATE SODIUM 100 MG CAPSULE PO PRN (13:40)
[2022-03-18] MEDS ORDERED: ACETAMINOPHEN 325 MG TABLET PO PRN (13:40)
[2022-03-18] MEDS ORDERED: GLUCAGON 1 MG VIAL IM PRN (13:40)
[2022-03-18] MEDS ORDERED: SODIUM CHLORIDE 0.9% 1,000 ML IV SCH (15:00)
[2022-03-18] MEDS ORDERED: FUROSEMIDE 40 MG/4 ML VIAL ONE (16:01)
[2022-03-18] MEDS ORDERED: FUROSEMIDE 40 MG/4 ML VIAL IV ONE ×2 (16:02→16:12)
[2022-03-18] MEDS ORDERED: methylPREDNISolone SOD SUC 40 MG/1 ML VIAL IV ONE (16:03)
[2022-03-18] MEDS ORDERED: ALBUTEROL/IPRATROPIUM 3 ML NEB RESP TX PRN (16:04)
[2022-03-18 16:17] LABS: Arterial Base Excess iSTAT -5 MMOL/L (-2.5-2.5); Arterial Bicarbonate iSTAT 25.6 MMOL/L (20-26); Arterial O2 Saturation iSTAT 97 % (95-100); Arterial PCO2 iSTAT 79 MM HG (35-48); Arterial PO2 iSTAT 128 MM HG (80-95); Arterial Total CO2 iSTAT 28 MMO/L (23-27); Arterial pH iSTAT 7.118 (7.35-7.45)
[2022-03-18] MEDS ORDERED: LORazepam 2 MG/1 ML VIAL ONE (16:19)
[2022-03-18] MEDS ORDERED: LORazepam 2 MG/1 ML VIAL IV ONE (16:20)
[2022-03-18] MEDS ORDERED: niCARdipine INJ 25 MG in SODIUM CHLORIDE 0.9% 240 ML IV PRN (16:35)
[2022-03-18] MEDS: INSULIN REGULAR 100 UNIT/ML SUBCUT SCH ×2 (16:44→20:16)
[2022-03-18 17:00] LABS: Basophils # 0.1 10*3/uL (0.0-0.2); Basophils % 0.6 % (0.0-0.8); Eosinophils # 0.6 10*3/uL (0.0-0.87); Eosinophils % 3.8 % (0.00-10.9); Hemoglobin 8.6 GM/DL (14.0-18.0); Immature Granulocytes Absolute 0.49 #; Lymphocytes # 2.2 10*3/uL (1.4-4.0); Lymphocytes % 13.7 % (21.2-54.2); Mean Corpuscular HGB Conc 31.9 GM/DL (32-36); Mean Corpuscular Volume 102.3 FL (87-102); Mean Platelet Volume 9.5 FL (9.6-12.0); Monocytes # 2.3 10*3/uL (0.11-0.8); Monocytes % 14.5 % (1.7-12.7); NRBC # 0.03 10*3/uL; Neutrophils % 64.4 % (38.7-73.9); Platelet Count 331 T/CUMM (130-400); Red Blood Count 2.64 MC/CUMM (3.8-5.5); Red Cell Distribution Width 15.9 % (9.3-17.3); White Blood Count 16.11 T/CUMM (4-12)
[2022-03-18] MEDS: ALBUTEROL 2.5 MG/3 ML NEB RESP TX SCH ×2 (17:00→19:04)
[2022-03-18 17:25] LABS: Alanine Aminotransferase 26 U/L (16-61); Alkaline Phosphatase 78 U/L (45-117); Aspartate Amino Transferase 22 U/L (0-37); Bilirubin,Total < 0.39 MG/DL (0.20-1.00); Blood Urea Nitrogen 100 MG/DL (7-18); Calcium 7.7 MG/DL (8.5-10.1); Carbon Dioxide 22 MMOL/L (21-32); Chloride 99 MMOL/L (98-107); Glucose 156 MG/DL (74-106); Osmolality,Calculated 301.2 MOS/KG (273-304); Sodium 134 MMOL/L (136-145); Total Protein 7.6 G/DL (6.4-8.2)
[2022-03-18 17:32] LABS: Bacteria,Urine Occasional /HPF (Few); Mucus,Urine Occasional /LPF (Occasional); RBC,Urine 2 /HPF (0-4)
[2022-03-18 17:33] LABS: Bilirubin,Urine Negative (Negative); Blood, Urine Small mg/dL (Negative); Glucose,Urine (UA) Negative (Negative); Ketones,Urine Negative (Negative); Nitrite,Urine Negative (Negative); Protein,Urine >=300 mg/dL (Negative); Urine Appearance Clear (Clear); Urine Color Yellow (Yellow); Urine Specific Gravity 1.015 (1.001-1.035); Urine Urobilinogen 0.2 eU/dL (<2.0); Urine pH 7.5 (4.5-8.0)
[2022-03-18 17:38] LABS: Ferritin 2220.4 ng/mL (26-388)
[2022-03-18] MEDS: AZITHROMYCIN INJ 500 MG in SODIUM CHLORIDE 0.9% 250 ML IV SCH (18:00)
[2022-03-18] MEDS: methylPREDNISolone SOD SUC 40 MG/1 ML VIAL IV SCH (18:00)
[2022-03-18] MEDS: FAMOTIDINE 20 MG/2 ML VIAL IV SCH (18:02)
[2022-03-18 19:05] LABS: Arterial Base Excess iSTAT -4 MMOL/L (-2.5-2.5); Arterial Bicarbonate iSTAT 21.5 MMOL/L (20-26); Arterial O2 Saturation iSTAT 97 % (95-100); Arterial PCO2 iSTAT 41 MM HG (35-48); Arterial PO2 iSTAT 100 MM HG (80-95); Arterial Total CO2 iSTAT 23 MMO/L (23-27); Arterial pH iSTAT 7.332 (7.35-7.45)
[2022-03-18] MEDS: ASCORBIC ACID 500 MG TABLET PO SCH (20:16)
[2022-03-19] MEDS: ALBUTEROL 2.5 MG/3 ML NEB RESP TX SCH ×4 (00:06→20:13)
[2022-03-19] MEDS: methylPREDNISolone SOD SUC 40 MG/1 ML VIAL IV SCH ×3 (00:52→17:43)
[2022-03-19 04:04] LABS: Arterial Base Excess iSTAT -3 MMOL/L (-2.5-2.5); Arterial Bicarbonate iSTAT 23.3 MMOL/L (20-26); Arterial O2 Saturation iSTAT 98 % (95-100); Arterial PCO2 iSTAT 45 MM HG (35-48); Arterial PO2 iSTAT 117 MM HG (80-95); Arterial Total CO2 iSTAT 25 MMO/L (23-27); Arterial pH iSTAT 7.325 (7.35-7.45)
[2022-03-19 04:21] LABS: Basophils % 0.2 % (0.0-0.8); Eosinophils % 0.2 % (0.00-10.9); Hematocrit 24.2 VOL% (42.0-52.0); Hemoglobin 7.9 GM/DL (14.0-18.0); Immature Granulocytes % 1.9 %; Immature Granulocytes Absolute 0.23 #; Lymphocytes # 0.6 10*3/uL (1.4-4.0); Lymphocytes % 4.5 % (21.2-54.2); Mean Corpuscular HGB Conc 32.6 GM/DL (32-36); Mean Platelet Volume 9.7 FL (9.6-12.0); Monocytes # 0.4 10*3/uL (0.11-0.8); Monocytes % 3.4 % (1.7-12.7); Neutrophils % 89.8 % (38.7-73.9); Platelet Count 205 T/CUMM (130-400); Red Blood Count 2.42 MC/CUMM (3.8-5.5); Red Cell Distribution Width 15.6 % (9.3-17.3); White Blood Count 12.35 T/CUMM (4-12)
[2022-03-19 04:43] LABS: Band Neutrophils 2 % (0-10); Lymphocytes 1 % (20-55); Macrocytosis Slight; Total Cells Counted 100
[2022-03-19 04:44] LABS: Ovalocytes Slight; Platelet Estimate Normal; Polychromasia Slight
[2022-03-19 04:54] LABS: Bilirubin,Total 0.4 MG/DL (0.20-1.00); Calcium 8.3 MG/DL (8.5-10.1); Osmolality,Calculated 304.2 MOS/KG (273-304); Potassium 4.7 MMOL/L (3.5-5.1); Total Protein 7.2 G/DL (6.4-8.2)
[2022-03-19] MEDS ORDERED: PANTOPRAZOLE 40 MG TABLET PO SCH (06:30)
[2022-03-19] MEDS: ASCORBIC ACID 500 MG TABLET PO SCH ×2 (08:36→21:13)
[2022-03-19] MEDS: ZINC GLUCONATE 50 MG TABLET PO SCH (08:36)
[2022-03-19] MEDS: INSULIN REGULAR 100 UNIT/ML SUBCUT SCH ×4 (08:53→21:14)
[2022-03-19] MEDS ORDERED: ENOXAPARIN 30 MG/0.3 ML SYRINGE SUBCUT SCH (09:00)
[2022-03-19] MEDS: SEVELAMER CARBONATE 800 MG TABLET PO SCH ×2 (11:48→17:43)
[2022-03-19] MEDS: MULTIVITAMIN (BEROCCA) TABLET PO SCH (11:48)
[2022-03-19] MEDS: carvediloL 25 MG TABLET PO SCH ×2 (11:48→21:13)
[2022-03-19] MEDS: FENOFIBRATE 160 MG TABLET PO SCH (11:49)
[2022-03-19] MEDS: allopurinoL 100 MG TABLET PO SCH (11:49)
[2022-03-19] MEDS: BACILLUS COAGULANS CAPLET PO SCH (11:49)
[2022-03-19] MEDS: ASPIRIN EC 81 MG TABLET PO SCH (11:49)
[2022-03-19] MEDS: FAMOTIDINE 20 MG/2 ML VIAL IV SCH (17:44)
[2022-03-19] MEDS: AZITHROMYCIN INJ 500 MG in SODIUM CHLORIDE 0.9% 250 ML IV SCH (17:44)
[2022-03-19] MEDS: HEPARIN 5,000 UNIT/1 ML VIAL SUBCUT SCH (21:14)
[2022-03-20] MEDS: methylPREDNISolone SOD SUC 40 MG/1 ML VIAL IV SCH ×2 (00:40→09:31)
[2022-03-20] MEDS: ALBUTEROL 2.5 MG/3 ML NEB RESP TX SCH ×4 (01:09→19:40)
[2022-03-20 04:51] LABS: Basophils % 0.1 % (0.0-0.8); Hematocrit 24.3 VOL% (42.0-52.0); Hemoglobin 7.8 GM/DL (14.0-18.0); Immature Granulocytes % 1.6 %; Immature Granulocytes Absolute 0.26 #; Lymphocytes # 0.7 10*3/uL (1.4-4.0); Lymphocytes % 4.4 % (21.2-54.2); Mean Corpuscular HGB Conc 32.1 GM/DL (32-36); Mean Corpuscular Volume 100.4 FL (87-102); Mean Platelet Volume 9.7 FL (9.6-12.0); Neutrophils % 87.9 % (38.7-73.9); Platelet Count 242 T/CUMM (130-400); Red Blood Count 2.42 MC/CUMM (3.8-5.5); Red Cell Distribution Width 15.7 % (9.3-17.3); White Blood Count 16.03 T/CUMM (4-12)
[2022-03-20 05:16] LABS: Band Neutrophils 3 % (0-10); Lymphocytes 1 % (20-55); Total Cells Counted 100
[2022-03-20 05:17] LABS: Anisocytosis 1+; Macrocytosis 1+; Platelet Estimate Normal; Polychromasia Slight
[2022-03-20 05:24] LABS: Albumin 3.1 G/DL (3.4-5.0); Bilirubin,Total 0.4 MG/DL (0.20-1.00); Ferritin 2943.4 ng/mL (26-388); Osmolality,Calculated 313.1 MOS/KG (273-304); Total Protein 7.4 G/DL (6.4-8.2)
[2022-03-20] MEDS: carvediloL 25 MG TABLET PO SCH ×2 (09:30→16:53)
[2022-03-20] MEDS: BACILLUS COAGULANS CAPLET PO SCH (09:31)
[2022-03-20] MEDS: MULTIVITAMIN (BEROCCA) TABLET PO SCH (09:31)
[2022-03-20] MEDS: SEVELAMER CARBONATE 800 MG TABLET PO SCH ×3 (09:31→16:53)
[2022-03-20] MEDS: ASPIRIN EC 81 MG TABLET PO SCH (09:31)
[2022-03-20] MEDS: allopurinoL 100 MG TABLET PO SCH (09:32)
[2022-03-20] MEDS: ZINC GLUCONATE 50 MG TABLET PO SCH (09:32)
[2022-03-20] MEDS: FENOFIBRATE 160 MG TABLET PO SCH (09:32)
[2022-03-20] MEDS: ASCORBIC ACID 500 MG TABLET PO SCH ×2 (09:32→21:01)
[2022-03-20] MEDS: INSULIN REGULAR 100 UNIT/ML SUBCUT SCH ×4 (09:59→21:02)
[2022-03-20] MEDS: HEPARIN 5,000 UNIT/1 ML VIAL SUBCUT SCH (10:09)
[2022-03-20] MEDS: FAMOTIDINE 20 MG/2 ML VIAL IV SCH (17:47)
[2022-03-20] MEDS ORDERED: methylPREDNISolone SOD SUC 40 MG/1 ML VIAL IV SCH (21:00)
[2022-03-20] MEDS: AZITHROMYCIN INJ 500 MG in SODIUM CHLORIDE 0.9% 250 ML IV SCH (21:01)
[2022-03-21] MEDS: ALBUTEROL 2.5 MG/3 ML NEB RESP TX SCH ×2 (00:31→08:19)
[2022-03-21] MEDS: HEPARIN 5,000 UNIT/1 ML VIAL SUBCUT SCH ×2 (01:46→08:32)
[2022-03-21 07:26] VITALS: BP 126/83
[2022-03-21] MEDS: MULTIVITAMIN (BEROCCA) TABLET PO SCH (08:31)
[2022-03-21] MEDS: FENOFIBRATE 160 MG TABLET PO SCH (08:31)
[2022-03-21] MEDS: ASPIRIN EC 81 MG TABLET PO SCH (08:31)
[2022-03-21] MEDS: BACILLUS COAGULANS CAPLET PO SCH (08:31)
[2022-03-21] MEDS: allopurinoL 100 MG TABLET PO SCH (08:31)
[2022-03-21] MEDS: SEVELAMER CARBONATE 800 MG TABLET PO SCH ×2 (08:31→12:27)
[2022-03-21] MEDS: carvediloL 25 MG TABLET PO SCH (08:31)
[2022-03-21] MEDS: ASCORBIC ACID 500 MG TABLET PO SCH (08:31)
[2022-03-21] MEDS: INSULIN REGULAR 100 UNIT/ML SUBCUT SCH ×2 (08:32→12:27)
[2022-03-21] MEDS: ZINC GLUCONATE 50 MG TABLET PO SCH (08:35)
[2022-03-21] MEDS ORDERED: predniSONE 20 MG TABLET PO SCH (09:00)
== END 2022-03-21 13:43 | disposition home or self-care (01) | DRG 177 ==
LOC: N.2E → OBSVTOIN 13:18 → SUATTDRO 13:18 → N.2E 15:56 → N.CC 16:23 → N.3E 03-19 16:38
PROVIDERS: ADMIT Family Medicine; ATTEND Family Medicine